=== PATIENT | female | born 2000 | race Caucasian/White ===

== ENCOUNTER → 2023-09-13 14:31 | Outpatient (BNVA) | payer SELFPAY | PROVIDERS: Visit Provider Nurse Practitioner Family | DX: Z32.00 Encounter for pregnancy test, result unknown (principal); R39.9 Unspecified symptoms and signs involving the genitourinary system | CPT/HCPCS: 81000; 81025 ==

== ENCOUNTER 2023-09-20 10:04 | Emergency (ER) | payer SELFPAY ==
[2023-09-20 10:28] VITALS: BP 116/76; PULSE 53; RESP 18; TEMP 36.7; O2SAT 100; BMI 20.1
[2023-09-20 10:30] LABS: Basophils % 0.3 %; Eosinophils # 0.1 10^3/uL (0.0-0.8); Eosinophils % 1.2 %; Hematocrit 37.2 % (36-47); Lymphocytes # 2.2 10^3/uL (0.8-4.8); Lymphocytes % 36.9 %; Mean Corpuscular HGB Conc 32.8 g/dL (30-55); Mean Corpuscular Hemoglobin 28.6 pg (27-33); Mean Corpuscular Volume 87.3 fl (85-98); Mean Platelet Volume 8.8 fL (7.4-10.4); Monocytes # 0.4 10^3/uL (0.2-0.9); Monocytes % 6.1 %; Neutrophils # 3.34 10^3/uL (1.8-7.7); Neutrophils % 55.3 %; Nucleated Red Blood Cells % 0 %; Platelet Count 256 10^3/cmm (157-399); Red Blood Count 4.26 10^6/uL (3.85-5.65); Red Cell Distribution Width 12.2 % (12.1-15.1); White Blood Count 6.04 10^3/uL (3.29-11.43)
--- NOTE | 2023-09-20 10:31 | US_ITS ---
WS: [id number] EARLY OBSTETRICAL ULTRASOUND (<14 WEEKS). HISTORY: abd pain in COMPARISON: None available. Single intrauterine gestational sac is identified. Cardiac activity at 155 BPM. [place]-rump length jason sures 5.4 cm which corresponds to a gestation of 12w0d. Normal-appearing yolk sac and amnion demonstr ated. No subchorionic hemorrhage. No free fluid. Normal size RIGHT ovary with no mass. RIGHT ovary corpus luteum 1.6 x 1.8 x 2.1 cm. LEFT ovary not visualized. Normal cervix. IMPRESSION: 1. Single intrauterine gestation of 12w0d with an EDC of 04/03/2024. 2. Normal cardiac activity. 3. Cervix is closed.
--- NOTE | 2023-09-20 10:32 | ED_ITS ---
HPI - Abdominal Pain 2 General: Chief Complaint: Abdominal Pain Stated Complaint: abd pain, not sure how far Time Seen by Provider: 09/20/23 10:26 Source: patient Mode of arrival: ambulatory History of Present Illness: 23-year-old female states she is current ly 2 months states that over the last 2 weeks she has been having some left lower quadrant cramping pain she denies any vaginal bleeding she denies any vomiting or diarrhea. States that pain is a 2 out of 10. Denies any worse improved factors. Associated Symptoms: Denies chills, diarrhea, dysuria, fever(s), nausea and vomiting Review of Systems 2 Const: Denies: fever(s), chills, body aches or change in appetite ENMT: Denies: throat pain or dental pain Card: Denies: chest pain Resp: Denies: dyspnea GI: Reports: abdominal pain; Denies: nausea, vomiting or diarrhea : Denies: dysuria Musc: Denies: neck pain or back pain Skin/Breast: Denies: rash Neuro: Denies: headache(s) Physical Exam 2 Const: COMMON NORMALS: no acute distress, patient oriented x3 and healthy appearing HENMT: COMMON NORMALS: normocephalic and atraumatic HEAD & SCALP: n ormocephalic and atraumatic Neck/C-Spine: COMMON NORMALS: full ROM and supple Chest: COMMONS NORMALS: normal inspection of the chest Resp: COMMON NORMALS: normal respiratory effort Cardio: COMMON NORMALS: regular rate, regular rhythm and No murmurs present (Cardio) RATE: regular rate RHYTHM: regular rhythm GI: COMMON NORMALS: Normal to inspection, nondistended, normoactive bowel sounds present, Soft to palpation, non-tender and no masses PALPATION: Yes Soft to palpation Extremity: COMMON NORMALS: normal to inspection and full ROM Neuro: COMMON NORMALS: patient oriented x3, moves all extremities and no focal motor deficits Psych: COMMON NORMALS: mental status grossly normal, Normal thought process present and cooperative THOUGHT PROCESS: Normal thought process present Skin: COMMON NORMALS: no rashes or lesions noted and no wounds GENERAL SKIN EXAM: no rashes or lesions noted Course 2 Vital Signs: Vital signs: Vital Signs Temperature 98.0 F 09/20/23 10:28 Pulse Rate 53 L 09/20/23 10:28 Respiratory Rate 18 09/20/23 10:28 Blood Pressure 116/76 09/20/23 10:28 Pulse Oximetry 100 09/20/23 10:28 Oxygen Delivery Me thod Room Air 09/20/23 10:28 MDM - Abdominal Pain Medical Decision Making Patient presents here with abdominal pain in exam here is benign patient stable for discharge she is follow-up with OB. Return if worsening. Medical Records I reviewed the patient's medical records. Lab Data I reviewed the patient's lab results. 09/20/23 10:24 09/20/23 10:24 Labs/Radiology: Laboratory Results WBC 6.04 10^3/uL (3.29-11.43) 09/20/23 10:24 RBC 4.26 10^6/uL (3.85-5.65) 09/20/23 10:24 Hgb 12.20 g/dL (11.27-16.99) 09/20/23 10:24 Hct 37.2 % (36-47) 09/20/23 10:24 MCV 87.3 fl (85-98) 09/20/23 10:24 MCH 28.6 pg (27-33) 09/20/23 10:24 MCHC 32.8 g/dL (30-55) 09/20/23 10:24 RDW 12.2 % (12.1-15.1) 09/20/23 10:24 Plt Count 256 10^3/cmm (157-399) 09/20/23 10:24 MPV 8.8 fL (7.4-10.4) 09/20/23 10:24 Neut % (Auto) 55.3 % 09/20/23 10:24 Lymph % (Auto) 36.9 % 09/20/23 10:24 [place] % (Auto) 6.1 % 09/20/23 10:24 Eos % (Auto) 1.2 % 09/20/23 10:24 Baso % (Auto) 0.3 % 09/20/23 10:24 Neut # (Auto) 3.34 10^3/uL (1.8-7.7) 09/20/23 10:24 Lymph # (Auto) 2.2 10^3/uL (0.8-4.8) 09/20/23 10:24 [place] # (Auto) 0.4 10^3/uL (0.2-0.9) 09/20/23 10:24 Eos # (Auto) 0.1 10^3/uL (0.0-0.8) 09/20/23 10:24 Baso # (Auto) 0.0 10^3/uL (0.0-0.1) 09/20/23 10:24 Nucleated RBC % (auto) 0 % 09/20/23 10:24 Nucleated RBCs # 0.0 /100WBC 09/20/23 10:24 Sodium 136 mmol/L (136-145) 09/20/23 10:24 Potassium 3.6 mmol/L (3.5-5.1) 09/20/23 10:24 Chloride 101 mmol/L (98-107) 09/20/23 10:24 Carbon Dioxide 20 mmol/L (22-29) L 09/20/23 10:24 Anion Gap 18.6 (5-19) 09/20/23 10:24 BUN 5 mg/dL (6-20) L 09/20/23 10:24 Creatinine 0.4 mg/dL (0.5-0.9) L 09/20/23 10:24 GFR Calculation 199.6 mL/min (90-130) H 09/20/23 10:24 Glucose 64 mg/dL (65-115) L 09/20/23 10:24 Calculated Osmolality 277 mOsm/kg (285-295) L 09/20/23 10:24 Calcium 8.8 mg/dL (8.5-10.5) 09/20/23 10:24 Total Bilirubin 0.3 mg/dL (0.15-1.2) 09/20/23 10:24 AST 14 U/L (0-32) 09/20/23 10:24 ALT 10 U/L (0-33) 09/20/23 10:24 Alkaline Phosphatase 56 U/L (35-105) 09/20/23 10:24 Total Protein 7.1 g/dL (6.6-8.7) 09/20/23 10:24 Albumin 4.3 g/dL (3.5-5.2) 09/20/23 10:24 Globulin 2.8 g/dL (1.3-4.6) 09/20/23 10:24 Lipase 22 U/L (13-60) 09/20/23 10:24 Ser , Semi-Qnt 32669.00 mIU/mL 09/20/23 10:24 Urine Color Yellow (Yellow) 09/20/23 11:22 Urine Appearance Sl hazy (CLEAR) A 09/20/23 11:22 Urine pH 7 (5-7) 09/20/23 11:22 Ur Specific [place] 1.005 (1.005-1.030) 09/20/23 11:22 Urine Protein Neg (Negative) 09/20/23 11:22 Urine Glucose (UA) Norm (Normal) 09/20/23 11:22 Urine Ketones Negative (Negative) 09/20/23 11:22 Urine Blood Neg (Negative) 09/20/23 11:22 Urine Nitrate Negative (Negative) 09/20/23 11:22 Urine Bilirubin Neg (Negative) 09/20/23 11:22 Urine Urobilinogen Neg mg/dL (Negative) 09/20/23 11:22 Ur Leukocyte Esterase Negative (Negative) 09/20/23 11:22 Urine RBC 0-4 /hpf (0-2) H 09/20/23 11:22 Urine WBC 0-4 /hpf (0-5) H 09/20/23 11:22 Ur Squamous Epith Cells 10-15 /hpf (0-5) H 09/20/23 11:22 Amorphous Sediment Not Reportable 09/20/23 11:22 Urine Bacteria Trace /hpf (NONE) 09/20/23 11:22 Urine Mucus Trace /hpf 09/20/23 11:22 All radiology interpretation(s) finalized by discharge Discharge Plan Discharge Patient Disposition: Home Clinical Impression: Abdominal pain affecting Condition: Stable Prescriptions: No Action No Known Home Medications Discharge Orders: Discharge ED (Routine); Ordered 09/20/23 Ordered By: Steve Gaspar Referrals: Dirk Hansen MD [Physician] - 1-3 days Discharge Diet: Advance as tolerated Discharge Activity: Resume usual activity Patient Instructions: Abdominal Pain (ED) Coding Level of Care Code ED Resolution Expert for Perri Lam
--- NOTE | 2023-09-20 10:34 | PC.PHAR ---
pts family in room states the pt takes no prescription or otc medications
[2023-09-20 10:58] LABS: Alanine Aminotransferase 10 U/L (0-33); Albumin Level 4.3 g/dL (3.5-5.2); Alkaline Phosphatase 56 U/L (35-105); Anion Gap 18.6 (5-19); Aspartate Amino Transferase 14 U/L (0-32); Blood Urea Nitrogen 5 mg/dL (6-20); Calcium 8.8 mg/dL (8.5-10.5); Carbon Dioxide 20 mmol/L (22-29); Chloride 101 mmol/L (98-107); Creatinine Clr Calc Pharmacy 174.1946; Globulin 2.8 g/dL (1.3-4.6); Glomerular Filtration Rate 199.6 mL/min (90-130); Glucose 64 mg/dL (65-115); Lipase 22 U/L (13-60); Osmolality Calculated 277 mOsm/kg (285-295); Potassium 3.6 mmol/L (3.5-5.1); Sodium 136 mmol/L (136-145); Total Bilirubin 0.3 mg/dL (0.15-1.2); Total Protein 7.1 g/dL (6.6-8.7)
[2023-09-20] MEDS: acetaminophen 500 mg Tablet 1000 MG PO (11:19)
[2023-09-20 11:43] LABS: Add Urine Microscopic? YES; Bilirubin Urine Neg (Negative); Blood Urine Neg (Negative); Glucose Urine UA Norm (Normal); Ketones Urine Negative (Negative); Leukocyte Esterase Urine Negative (Negative); Nitrate Urine Negative (Negative); Protein Urine Neg (Negative); RBC Urine 0-4 /hpf (0-2); Specific Gravity, Urine 1.005 (1.005-1.030); Urine Appearance SL Hazy (CLEAR); Urine Color Yellow (Yellow); Urobilinogen Urine Neg (Negative); WBC Urine 0-4 /hpf (0-5); pH Urine 7 (5-7)
[2023-09-20 11:44] LABS: Add Urine Culture? No; Bacteria Urine TRACE /hpf; Mucus Urine TRACE /hpf
[2023-09-20 12:40] VITALS: PULSE 60; O2SAT 99
--- NOTE | 2023-09-21 01:56 | DCPLANNER ---
Message sent to obgyn for follow up -
== END 2023-09-20 12:42 | disposition home or self-care (01) ==
PROVIDERS: Emergency Provider Emergency Medicine
DX: O26.891 Other specified pregnancy related conditions, first trimester (principal); R10.32 Left lower quadrant pain; Z3A.12 12 weeks gestation of pregnancy
CPT/HCPCS: 76817; 80053; 81001; 83690; 84702; 85025; 99284

== ENCOUNTER → 2023-09-26 15:36 | Outpatient (BNVA) | payer SELFPAY | PROVIDERS: Visit Provider Nurse Practitioner Women's Health | DX: Z34.90 Encounter for supervision of normal pregnancy, unspecified, unspecified trimester (principal) | CPT/HCPCS: 80307; 81000; 87086 ==

== ENCOUNTER → 2023-10-04 10:20 | Outpatient (BNVA) | payer SELFPAY | PROVIDERS: Visit Provider Obstetrics & Gynecology | DX: Z34.90 Encounter for supervision of normal pregnancy, unspecified, unspecified trimester (principal) | CPT/HCPCS: 85025; 86592; 86762; 86787; 86803; 86850; 86900; 87340; 87806 ==

== ENCOUNTER → 2023-10-18 08:22 | Outpatient (BNVA) | payer MEDICAID, SELFPAY | PROVIDERS: Visit Provider Obstetrics & Gynecology | DX: Z34.80 Encounter for supervision of other normal pregnancy, unspecified trimester (principal) | CPT/HCPCS: 81000 ==

== ENCOUNTER → 2023-12-06 09:17 | Outpatient (BNVA) | payer MEDICAID, SELFPAY | PROVIDERS: Visit Provider Obstetrics & Gynecology | DX: O26.891 Other specified pregnancy related conditions, first trimester (principal); Z3A.01 Less than 8 weeks gestation of pregnancy | CPT/HCPCS: 76805 ==

== ENCOUNTER → 2023-12-13 08:23 | Outpatient (BNVA) | payer MEDICAID, SELFPAY | PROVIDERS: Visit Provider Nurse Practitioner Women's Health | DX: Z34.80 Encounter for supervision of other normal pregnancy, unspecified trimester (principal) | CPT/HCPCS: 82950; 84315; 87491; 87591; 88175 ==

== ENCOUNTER → 2024-01-17 08:14 | Outpatient (BNVA) | payer MEDICAID, SELFPAY | PROVIDERS: Visit Provider Obstetrics & Gynecology | DX: Z34.80 Encounter for supervision of other normal pregnancy, unspecified trimester (principal) | CPT/HCPCS: 84315; 85025 ==

== ENCOUNTER → 2024-02-14 13:15 | Outpatient (BNVA) | payer MEDICAID, SELFPAY | PROVIDERS: Visit Provider Obstetrics & Gynecology | DX: Z34.90 Encounter for supervision of normal pregnancy, unspecified, unspecified trimester (principal) | CPT/HCPCS: 81000 ==

== ENCOUNTER → 2024-03-06 10:20 | Outpatient (BNVA) | payer MEDICAID, SELFPAY | PROVIDERS: Visit Provider Obstetrics & Gynecology | DX: O26.90 Pregnancy related conditions, unspecified, unspecified trimester (principal) | CPT/HCPCS: 84315; 87081 ==

== ENCOUNTER → 2024-03-13 08:00 | Outpatient (BNVA) | payer MEDICAID, SELFPAY | PROVIDERS: Visit Provider Obstetrics & Gynecology | DX: Z34.80 Encounter for supervision of other normal pregnancy, unspecified trimester (principal) | CPT/HCPCS: 81000 ==

== ENCOUNTER 2024-03-27 10:57 | Outpatient (CLI) | payer MEDICAID, SELFPAY ==
[2024-03-27] VITALS (7 sets, daily range): BP systolic 109–122; BP diastolic 64–69; PULSE 53–66; RESP 16; TEMP 35.7; BMI 23.8
== END 2024-03-27 12:25 | disposition home or self-care (01) ==
LOC: OPOB 10:57 → OBGYN 10:58
PROVIDERS: Visit Provider Obstetrics & Gynecology
DX: O26.899 Other specified pregnancy related conditions, unspecified trimester (principal); Z3A.00 Weeks of gestation of pregnancy not specified; R10.9 Unspecified abdominal pain
CPT/HCPCS: 59025; 76816; 81000; 99211

== ENCOUNTER 2024-03-29 21:07 | Inpatient (IN) | payer MEDICAID, SELFPAY ==
[2024-03-29] VITALS (12 sets, daily range): BP systolic 113–120; BP diastolic 60–72; PULSE 59–81; RESP 16; BMI 25.4
--- NOTE | 2024-03-29 21:40 | PM.OBGYHP ---
Providers/Chief Complaint Admitting Physician: Bob Black MD Primary TECHNICIAN INVENTORY SPECIALIST: Dirk Hansen MD Chief Complaint: Contractions HPI TECHNICIAN INVENTORY SPECIALIST History of Present Illness Patient does not speak Yoruba Translation provided by telephone translation service 23 y.o. Sa1 EDC April 03, 2024 At 39 w 2 d No complications Presented to L&D c/o uterine contractions No bleeding, fluid leakage + active movements POBHx: x 2019 Present Details : 3 Para: 1 Labs Rubella: Immune RPR: Negative GBS: Negative Medications/Allergies Home Medications Medication Instructions Recorded Confirmed Last Taken Type metoclopramide HCl 5 mg tablet 5 mg PO Q6H #120 tabs 12/13/23 03/27/24 Unknown Rx (Reglan) ferrous sulfate 325 mg (65 mg 325 mg PO BID #60 tabs 02/21/24 03/27/24 03/26/24 20:00 Rx iron) tablet Allergies Allergy/AdvReac Type Severity Reaction Status Date / Time No Known Allergies Allergy Verified 03/27/24 08:08 PFSH TECHNICIAN INVENTORY SPECIALIST PFSH: Medical History No pertinent past medical history neghx: htn,dm,thyroid,dvt/pe PCP: None Surgical History No pertinent past surgical history Family History Denies family history of Colon cancer Ovarian cancer Prostate cancer Diabetes Heart disease Hyperlipidemia Breast cancer Hypertension Uterine cancer Thyroid disease Stroke Social History Smoking and tobacco/nicotine status: never used tobacco/nicotine History History History 3 Term 1 0 Miscarriages/Ectopic 1 Living Children 1 Care BECKIE Calculator Estimated Delivery Date Method Current WG Current Estimate 04/03/24 Ultrasound #1 39w 3d Other Estimates 05/13/24 LMP (Certain) 33w 5d Specific Issues/Plans N/V UTI-- at 12wk;start keflex BV and UReaplasma at 24wks; treated at 34wks (unable to get in touch with her) Vitals/I&O/Wt Last Vital Signs Pulse 73 03/30/24 03:45 Resp 16 03/29/24 16:50 BP 116/66 03/30/24 03:45 O2 Del Method Room Air 03/29/24 21:35 03/29/24 03/29/24 03/30/24 14:59 22:59 06:59 Intake Total 5.700 / 5.700 Balance 5.700 / 5.700 Weight last 48 hrs Weight 130 lb Physical Exam Narrative: Weight 130 lbs VS normal General comfortable, awake, alert Lungs: clear Cor: RRR Abd: nontender Cervix: 2-3 cm Ext: normal External monitor: heart tracing good variability, + accelerations OB sono 03-27-24 Vtx; 38 w 3 d; WNL GBS negative Data 03/29/24 21:39 Results Labs OB ([facility]): Obstetrics US 03/27/24 Blood Type O Positive 03/29/24 Antibody Screen Negative 03/29/24 Hct 33.0 % (36-47) L 03/29/24 Hgb 10.80 g/dL (11.27-16.99) L 03/29/24 Rho(D) Type Rh positive 03/29/24 Plt Count 270 10^3/cmm (157-399) 03/29/24 Hep Bs Antigen Non-reactive (Nonreactive) 10/04/23 Hepatitis C Antibody Non-reactive (Nonreactive) 10/04/23 Rubella IgG Antibody 67.7 IU/mL (0.0-10.0) H 10/04/23 RPR Nonreactive (Nonreactive) 10/04/23 HIV 1&2 Ab & HIV 1 Ag Non-reactive (Non-Reactiv) 10/04/23 C.trachomatis RNA (TMA) Not detected (NOT DETECTED) 12/13/23 N.gonorrhoeae RNA (TMA) Not detected (NOT DETECTED) 12/13/23 T. vaginalis Amp RNA Not detected (NOT DETECTED) 12/13/23 Chlamydia/GC Comment See note 12/13/23 Gest Glucose Tolerance 86 mg/dL (70-139) 12/13/23 Ser , Semi-Qnt 73129.00 mIU/mL 09/20/23 HCG, Qual Positive (Negative) H 09/13/23 Urine Opiates Screen Negative ng/mL (Negative) 09/26/23 Ur Barbiturates Screen Negative ng/mL (Negative) 09/26/23 Ur Phencyclidine Scrn Negative ng/mL (Negative) 09/26/23 Ur Amphetamines Screen Negative ng/mL (Negative) 09/26/23 U Benzodiazepines Scrn Negative ng/mL (Negative) 09/26/23 Urine Cocaine Screen Negative ng/mL (Negative) 09/26/23 U Marijuana (THC) Screen Negative ng/mL (Negative) 09/26/23 Micro Urine Specimen 09/26/23 Pap Smear Interpret See note 12/13/23 A&P Assessment and plan (1) Supervision of other normal : 39 w 2 d Early labor with moderately painful uterine contractions Options of discharge to home to await active labor vs. induction of labor discussed with patient, including benefits / risks of each option Risks of induction include, but not limited to, prolonged labor, risk of intolerance of Labor, increased rate Patient understands and states she wants to proceed with labor induction Plan start Pitocin per protocol Attestations Medical Necessity Statement*: patient at 39 w 2 d with moderately painful uterine contractions Coding Level of Care Code Acute Code for Chg Fwd Diagnoses Supervision of other normal Z34.80 Time Spent (min) 60
[2024-03-29 22:19] LABS: Basophils % 0.1 %; Eosinophils % 0.3 %; Lymphocytes # 1.7 10^3/uL (0.8-4.8); Lymphocytes % 18.7 %; Mean Corpuscular HGB Conc 32.7 g/dL (30-55); Mean Corpuscular Hemoglobin 27.3 pg (27-33); Mean Corpuscular Volume 83.3 fl (85-98); Mean Platelet Volume 9.2 fL (7.4-10.4); Monocytes # 0.7 10^3/uL (0.2-0.9); Monocytes % 7.6 %; Neutrophils # 6.46 10^3/uL (1.8-7.7); Neutrophils % 72.8 %; Nucleated Red Blood Cells % 0 %; Platelet Count 270 10^3/cmm (157-399); Red Blood Count 3.96 10^6/uL (3.85-5.65); White Blood Count 8.87 10^3/uL (3.29-11.43)
[2024-03-29] MEDS: dextrose 5%-lactated ringers 1,000 ML 125 ML IV (22:52)
[2024-03-29] MEDS: oxytocin 30 UNIT/500 ML BAG IV (22:53)
--- NOTE | 2024-03-29 23:09 | PC.NURSE ---
Spiritual Minister Line used
[2024-03-30] VITALS (27 sets, daily range): BP systolic 99–154; BP diastolic 50–90; PULSE 51–80; RESP 16; TEMP 36.7–37.2; O2SAT 98
[2024-03-30] MEDS: dextrose 5%-lactated ringers 1,000 ML 125 ML IV (05:03)
[2024-03-30] MEDS: lidocaine 2% INJ 20 mL INJECTION (06:26)
[2024-03-30] MEDS: miSOPROStol 200 mcg Tablet 800 MCG PR (06:39)
--- NOTE | 2024-03-30 06:51 | P.PCNOB_ITS ---
Delivery Note: Date of delivery: March 30, 2024 Pre-delivery diagnoses: 23yo female at 39.2 wk IUP Active labor Asymptomatic Anemia Post-delivery diagnoses: same Uterine Atony Procedure: At complete cervical dilation, using a driver license examiner by phone, pt was instructed to push with contractions. AROM was performed with clear fluid noted. After several pushes the vertex presented in OA presentation while supporting the perineum, followed by the Anterior then Posterior shoulders with the remainder of the body following. Pitocin IV solution was started by bolus. Copious fluid delivered. The cord was clamped and cut after 2-3 delay, with spontaneous cry noted. The Baby Boy was placed on Mothers chest for bonding and Nursing staff began assessment and care. 3V cord noted, the uterus was messaged a nd the placenta delivered with [place]ner presentation with trailing membranes. The vaginal vault explored with 2 ML laceration noted and repaired with 3.0 Vicryl, after infiltration with Lidocaine. The uterus was messaged but Uterine Atony noted after a moderate gush of blood. 400mg Cytotec was placed rectally to decrease blood loss for the Uterine Atony. The uterus firmed, and the bleeding noted to minimize. The Mother and Baby are in stable condition. Op report anesthesia: None Delivering Physician: Haley Harmon DO Estimated blood loss (mL): 300 Findings: viable male Baby Post Delivery Diagnoses: 39 weeks gestation of : Uterine Atony Asymptomatic Anemia UTI (urinary tract infection) during : Qualifiers: Trimester: first trimester Qualified Code(s): O23.41 - Unspecified infection of urinary tract in , first trimester Post-Delivery Status: stable History History History 3 Term 1 0 Miscarriages/Ectopic 1 Living Children 1 A&P Assessment and plan (1) 39 weeks gestation of : care. (2) UTI (urinary tract infection) during : Qualifiers: Trimester: first trimester Qualified Code(s): O23.41 - Unspecified infection of urinary tract in , first trimester (3) Supervision of other normal : Coding Level of Care Code Acute Code for Chg Fwd Diagnoses 39 weeks gestation of Z3A.39 Urinary tract infection in mother during first trimester of O23.41 Trimester: first trimester Supervision of other normal Z34.80
[2024-03-30 18:46] LABS: Hematocrit 31.2 % (36-47); Mean Corpuscular HGB Conc 32.7 g/dL (30-55); Mean Corpuscular Hemoglobin 27.2 pg (27-33); Mean Corpuscular Volume 83.2 fl (85-98); Mean Platelet Volume 9.2 fL (7.4-10.4); Platelet Count 227 10^3/cmm (157-399); Red Blood Count 3.75 10^6/uL (3.85-5.65); Red Cell Distribution Width 16.1 % (12.1-15.1); White Blood Count 11.23 10^3/uL (3.29-11.43)
[2024-03-31 04:08] VITALS: BP 112/74; PULSE 72; RESP 16; TEMP 36.8; O2SAT 99
[2024-03-31] MEDS: ibuprofen 800 mg tablet PO (08:56)
[2024-03-31] MEDS: docusate sodium 100 mg Capsule PO (08:56)
[2024-03-31] MEDS: PRENATAL VIT NO.130/IRON/FOLIC 1 EACH TABLET PO (08:56)
[2024-03-31 08:57] VITALS: BP 102/68; PULSE 71; RESP 15; TEMP 36.6; TEMP 36.7; O2SAT 98
--- NOTE | 2024-03-31 09:35 | P.PN_ITS ---
ULTRASOUND COORDINATOR Subjective 2 Subjective: Interval history: 23 yo female s/p viable male do ing well, no complaints. Director Of Patient Safety used to review orders and discharge plans. Pt is tolerating regular diet and ambulating. Pt denies ZHU, SOB, or CP. Pt is bottle feeding, and caring for baby without nursing assistance. Discussed continuation of PNV and Fe, nutritious diet and fluid. No strenuous activity or sex x 6 wk, pt verbalizes understanding. Labor: Station: -2 Amniotic Membrane Status: Ruptured Monitor Mode: Palpation Contraction Pattern: Regular Vitals/I&O/Wt Last Vital Signs Temp 98.0 F 03/31/24 08:57 Pulse 71 03/31/24 08:57 Resp 15 03/31/24 08:57 BP 102/68 03/31/24 08:57 Pulse Ox 98 03/31/24 08:57 O2 Del Method Room Air 03/31/24 08:57 Weight last 48 hrs Weight 58.967 kg Physical Exam 2 Back/Pelvis: OTHER: Abd- soft, fundus firm, lochia light. Extremity: COMMON NORMALS: normal to inspection, no clubbing, cyanosis or edema, no calf tenderness and no pedal edema Data 03/30/24 18:20 A&P Assessment and plan (1) (spontaneous vaginal delivery): DC to hoe F/U 6 wk at clinic (2) 39 weeks gestation of : (3) UTI (urinary tract infection) during : Qualifiers: Trimester: first trimester Qualified Code(s): O23.41 - Unspecified infection of urinary tract in , first trimester (4) Supervision of other normal : (5) Anemia: Attestations 2 Medical Necessity Statement*: Pt was admitted for IOL management. Coding Level of Care Code Acute Code for Chg Fwd Diagnoses (spontaneous vaginal delivery) O80 39 weeks gestation of Z3A.39 Urinary tract infection in mother during first trimester of O23.41 Trimester: first trimester Supervision of other normal Z34.80 Anemia D64.9
--- NOTE | 2024-03-31 09:42 | P.DS_ITS ---
Discharge Providers HEAVY EQUIPMENT SERVICE TECHNICIAN Date of Admission: 03/29/24 21:07 Date of Discharge: 03/31/24 Attending Provider at Admission: Bob Black MD Attending Provider at Discharge: Bob Black MD Diagnoses at Discharge Discharge Diagnosis (1) (spontaneous vaginal delivery): Details from hospital stay: 23yo female admitted o 03/29/2024 for IOL, pt delivered a viable male vis with 2 ML laceration repaired on 03/30/24. She received Cytotec post delivery for Uterine Atony with good response of firming of utrine tone and decrease of blood loss. Pt denies ZHU or visual changes, she has been ambulating and tolerating regular diet. pt has progressed well with no complaints. expectation and DC orders has been reviewed thru telephone interpreter deaf. VSS, Afebrile Abd- soft, fundus firm, ochia light Ext- no edema, neg Homans sign. Status: Acute (2) 39 weeks gestation of : Status: Acute (3) UTI (urinary tract infection) during : Status: Resolved Qualifiers: Trimester: first trimester Qualified Code(s): O23.41 - Unspecified infection of urinary tract in , first trimester (4) Supervision of other normal : Status: Acute (5) Anemia: Details from hospital stay: asymptomatic, pt encouraged to continue her PNV and Fe which she has at home. Status: Acute Reason for Visit Reason for Visit: Contractions Hospital Course Hospital Course see above Information Peripartum Data: Infant Delivery Method: Vaginal Laceration description: Perineal - 2nd Degree Episiotomy description: None complications: none Physical Exam Back/Pelvis: OTHER: Abd- soft, fundus firm, lochia light. Extremity: COMMON NORMALS: normal to inspection, no clubbing, cyanosis or edema, no calf tenderness and no pedal edema History History History 3 Term 2 0 Miscarriages/Ectopic 1 Living Children 2 Discharge Data Studies Completed and Pending Laboratory Results WBC 11.23 10^3/uL (3.29-11.43) 03/30/24 18:20 RBC 3.75 10^6/uL (3.85-5.65) L 03/30/24 18:20 Hgb 10.20 g/dL (11.27-16.99) L 03/30/24 18:20 Hct 31.2 % (36-47) L 03/30/24 18:20 MCV 83.2 fl (85-98) L 03/30/24 18:20 MCH 27.2 pg (27-33) 03/30/24 18:20 MCHC 32.7 g/dL (30-55) 03/30/24 18:20 RDW 16.1 % (12.1-15.1) H 03/30/24 18:20 Plt Count 227 10^3/cmm (157-399) 03/30/24 18:20 MPV 9.2 fL (7.4-10.4) 03/30/24 18:20 Neut % (Auto) 72.8 % 03/29/24 21:39 Lymph % (Auto) 18.7 % 03/29/24 21:39 [place] % (Auto) 7.6 % 03/29/24 21:39 Eos % (Auto) 0.3 % 03/29/24 21:39 Baso % (Auto) 0.1 % 03/29/24 21:39 Neut # (Auto) 6.46 10^3/uL (1.8-7.7) 03/29/24 21:39 Lymph # (Auto) 1.7 10^3/uL (0.8-4.8) 03/29/24 21:39 [place] # (Auto) 0.7 10^3/uL (0.2-0.9) 03/29/24 21:39 Eos # (Auto) 0.0 10^3/uL (0.0-0.8) 03/29/24 21:39 Baso # (Auto) 0.0 10^3/uL (0.0-0.1) 03/29/24 21:39 Nucleated RBC % (auto) 0 % 03/29/24 21:39 Nucleated RBCs # 0.0 /100WBC 03/29/24 21:39 Blood Type O Positive 03/29/24 21:39 Rho(D) Type Rh positive 03/29/24 21:39 Antibody Screen Negative 03/29/24 21:39 Procedures Performed IOL with and repair of 2 ML laceration. Rectal cytotec for uterine atony. Vitals Last Vital Signs Temp 98.0 F 03/31/24 08:57 Pulse 71 03/31/24 08:57 Resp 15 03/31/24 08:57 BP 102/68 03/31/24 08:57 Pulse Ox 98 03/31/24 08:57 O2 Del Method Room Air 03/31/24 08:57 Results Labs OB ([facility]): Obstetrics US 03/27/24 Blood Type O Positive 03/29/24 Antibody Screen Negative 03/29/24 Hct 31.2 % (36-47) L 03/30/24 Hgb 10.20 g/dL (11.27-16.99) L 03/30/24 Rho(D) Type Rh positive 03/29/24 Plt Count 227 10^3/cmm (157-399) 03/30/24 Hep Bs Antigen Non-reactive (Nonreactive) 10/04/23 Hepatitis C Antibody Non-reactive (Nonreactive) 10/04/23 Rubella IgG Antibody 67.7 IU/mL (0.0-10.0) H 10/04/23 RPR Nonreactive (Nonreactive) 10/04/23 HIV 1&2 Ab & HIV 1 Ag Non-reactive (Non-Reactiv) 10/04/23 C.trachomatis RNA (TMA) Not detected (NOT DETECTED) N.gonorrhoeae RNA (TMA) Not detected (NOT DETECTED) T. vaginalis Amp RNA Not detected (NOT DETECTED) 12/13/23 Chlamydia/GC Comment See note 12/13/23 Gest Glucose Tolerance 86 mg/dL (70-139) 12/13/23 Ser , Semi-Qnt 87827.00 mIU/mL 09/20/23 HCG, Qual Positive (Negative) H 09/13/23 Urine Opiates Screen Negative ng/mL (Negative) 09/26/23 Ur Barbiturates Screen Negative ng/mL (Negative) 09/26/23 Ur Phencyclidine Scrn Negative ng/mL (Negative) 09/26/23 Ur Amphetamines Screen Negative ng/mL (Negative) 09/26/23 U Benzodiazepines Scrn Negative ng/mL (Negative) 09/26/23 Urine Cocaine Screen Negative ng/mL (Negative) 09/26/23 U Marijuana (THC) Screen Negative ng/mL (Negative) 09/26/23 Micro Urine Specimen 09/26/23 Pap Smear Interpret See note 12/13/23 Discharge Plan Discharge Patient Disposition: Home Condition: Stable Prescriptions: Continued metoclopramide HCl [Reglan] 5 mg tablet 5 mg PO Q6H Qty: 120 2RF ferrous sulfate 325 mg (65 mg iron) tablet 325 mg PO BID Qty: 60 4RF Discharge Orders: Discharge Order (Routine); Ordered 03/31/24 Ordered By: Leisa Harmon Discharge Diet: Regular Discharge Activity: Limit activity as instructed Patient Instructions: Opioid Safety Activity Restrictions/Additional Instructions: no strenuous activity and no sexual intercourse x 6 wks. Assessment: S/P viable male Plan of Treatment: DC to home Discharge Attestations HEAVY EQUIPMENT SERVICE TECHNICIAN Time Spent in Discharge Care*: less than 30 min Coding Level of Care Code Acute Code for Chg Fwd Diagnoses (spontaneous vaginal delivery) O80 39 weeks gestation of Z3A.39 Urinary tract infection in mother during first trimester of O23.41 Trimester: first trimester Supervision of other normal Z34.80 Anemia D64.9
[2024-03-31 14:27] VITALS: BP 107/67; PULSE 77; RESP 16; TEMP 36.6; O2SAT 97
== END 2024-03-31 14:35 | disposition home or self-care (01) | DRG 807 ==
LOC: OPOB 21:07 → OBGYN 21:07
PROVIDERS: Admitting Provider Obstetrics & Gynecology; Visit Provider Obstetrics & Gynecology
DX: O99.02 Anemia complicating childbirth (principal); Z37.0 Single live birth; O62.2 Other uterine inertia; Z3A.39 39 weeks gestation of pregnancy; D64.9 Anemia, unspecified; O70.1 Second degree perineal laceration during delivery
CPT/HCPCS: 36415; 59025; 59409; 85025; 85027; 86850; 86900; 99211; J2590; J7121